=== PATIENT | male | born 1955 | race Caucasian/White ===

== ENCOUNTER 2016-10-27 09:28 | Emergency (ER) | payer MEDICAID ==
--- OUTSIDE RECORDS SUMMARY | 2016-10-27 10:55 | XMS REPORT | Continuity of Care Document ---
:1955 Author Organization [facility] ([facility]) Address [address] [place] [address] Phone [phone] Care Team Providers Name Role Phone Norris Young Primary Care Provider [phone] Source Comments This disclosure is being made pursuant to the Care Everywhere program, applicable federal and state laws, and may not contain all informaitonavailable regarding this patient.[facility] ([facility]) Active Allergies and Adverse Reactions Allergen Noted Date Severity Reactions Comments Penicillins Unknown Current Medications Prescription Sig. Disp. Refills Start Date End Date Status aspirin 81 mg tablet take 81 mg by 09/06/2008 Active mouth Every morning. Chew atenolol (TENORMIN) 50 mg take 50 mg by 08/29/2008 Active tablet mouth daily. glucose blood test strips 1 Each by In 09/06/2008 Active (ACCU-CHEK MICHA) strip Vitro route 2 times daily. Lancing Device with Lancets 1 Each 2 times 09/06/2008 Active (ACCU-CHEK MULTICLIX LANCET) daily. Kit hydrochlorothiazide take 25 mg by 08/29/2008 Active (HYDRODIURIL) 25 mg tablet mouth daily. lisinopril (PRINIVIL) 10 mg take 10 mg by 09/06/2008 Active tablet mouth Every morning. metFORMIN (GLUCOPHAGE) 850 mg take 850 mg by 09/06/2008 Active tablet mouth 2 times daily. simvastatin (ZOCOR) 40 mg take 40 mg by 09/07/2008 Active tablet mouth at bedtime. Active Problems Problem Noted Date Osteoarthrosis, unspecified whether generalized or localized, unspecified 12/2008 site Abdominal pain, unspecified site 08/29/2008 Special screening for malignant neoplasm of prostate 07/27/2007 Special screening for malignant neoplasms, colon 07/27/2007 Other and unspecified hyperlipidemia 07/27/2007 Cough 07/27/2007 Type II or unspecified type diabetes mellitus without mention of 09/23/2006 complication, not stated as uncontrolled Pure hypercholesterolemia 09/23/2006 Screening for lipoid disorders 08/07/2006 Unspecified essential hypertension 08/07/2006 Undiagnosed cardiac murmurs 08/07/2006 Screening for diabetes mellitus 01/06/2006 Essential hypertension, benign 01/06/2006 Social History Tobacco Use Types Packs/Day Years Used Date Never Assessed Last Filed Vital Signs Vital Sign Reading Time Taken Blood Pressure 155/90 09/06/2008 3:28 PM CDT Pulse 67 09/06/2008 3:28 PM CDT Temperature 37.2 C (98.96 F) 09/06/2008 3:28 PM CDT Respiratory Rate 18 09/06/2008 3:28 PM CDT Height 1.77 m (5' 9.68") 09/06/2008 3:28 PM CDT Weight 102.2 kg (225 lb 5 oz) 09/06/2008 3:28 PM CDT Body Mass Index 32.62 09/06/2008 3:28 PM CDT Oxygen Saturation - - Plan of Care Health Maintenance Due Date Last Done Comments HCV Screening 1955 Hepatitis B Vaccine (1 of 3 - 1955 Primary Series) Tdap Vaccine 1967 MMR Vaccine 1974 Td Vaccine 1974 Pneumococcal Vaccine (1 of 1 1975 - PPSV23) Colonoscopy 2006 Prostate Cancer Screening 07/27/2008 07/27/2007 DIABETIC: Hemoglobin A1C 03/08/2009 09/06/2008, Additional history exists 07/27/2007, 12/23/2006 DIABETIC: Cholesterol 09/06/2009 09/06/2008, Additional history exists 12/23/2006, 09/23/2006 Diabetic: Hdl 09/06/2009 09/06/2008, Additional history exists 12/23/2006, 09/23/2006 Diabetic: Ldl 09/06/2009 09/06/2008, Additional history exists 12/23/2006, 09/23/2006 DIABETIC: Microalbumin 09/06/2009 09/06/2008, Additional history exists 12/23/2006, 09/23/2006 DIABETIC: Triglycerides 09/06/2009 09/06/2008, Additional history exists 12/23/2006, 09/23/2006 DIABETIC: Foot Exam 11/12/2010 DIABETIC: Retinal Eye Exam 11/12/2010 Influenza Vaccine: Seasonal 12/31/2015 (#1) Zoster Vaccine 2016 Results from Last 3 Months Not on file
--- NOTE | 2016-10-27 11:04 | ERNOTE ---
Integumentary HPI - Narrative Date of Service: 10/27/16 - General Presenting Symptoms: other - redness and blackened between first and second toes. Time Seen by Provider: 10/27/16 10:45 Source: patient Exam Limitations: no limitations - Immun/Allergies/Home Medications Immunizations: IMMUNIZATION HX Immunizations Up to Date No History of Influenza Vaccine No Hx Pneumococcal Vaccination No Allergies/Adverse Reactions: Allergies Allergy/AdvReac Type Severity Reaction Status Date / Time Penicillins Allergy Verified 10/27/16 10:21 Home Medications: HOME MEDICATIONS metFORMIN HCL [Glucophage] 850 mg PO BID 10/27/16 [Last Taken Unknown] - History of Present Illness Narrative: Pt. comes in with c/o L foot swelling, redness pain and blackened area between first and second toe that pt. noted was a white blister yesterday and has become dramatically worse. Pt. denies any history of foot wounds but is diabetic but denies any prehosital treatment, numbness, or tingling. Review of Systems - Review of Systems Constitutional: Present: no symptoms reported. Absent: fever, chills EYE: Present: no symptoms reported ENT: Present: no symptoms reported Respiratory: Present: no symptoms reported. Absent: shortness of breath, cough , wheezing Cardiology: Present: no symptoms reported. Absent: chest pain, palpitations, edema Gastrointestinal/Abdominal: Present: no symptoms reported Genitourinary: Present: no symptoms reported Musculoskeletal: Present: joint pain - L foot. Absent: back pain Skin: Present: no symptoms reported Neurological: Present: no symptoms reported. Absent: headache, dizziness/light- headedness, numbness, tingling All Other Systems: All systems neg except as marked - Patient's Past Medical History Patient History - Medical: Diabetes Type 2 Patient History - Cardiac/Respiratory: Hypertension Patient History - Cancer: No Hx of Cancer Patient History - Surgical Procedures: Appendectomy Patient History - Other: None - Social History Living Situations: alone Abuse History: No History of abuse Psych History: No pertinent hx Smoking Status: Never smoker Alcohol Use: none Drug Use: none - Immunizations Immunizations Up to Date: No Hx Pneumococcal Vaccination: No History of Influenza Vaccine: No Physical Exam - Physical Exam General Appearance: Present: wd/wn, alert, no apparent distress Eye Exam: Normal inspection: bilateral, PERRL: bilateral, EOMI: bilateral Ears, Nose, Throat: Present: normal ENT inspection, normal pharynx Neck: Present: normal inspection, nontender. Absent: lymphadenopathy (R), lymphadenopathy (L) Respiratory: Present: no respiratory distress, normal breath sounds, no accessory muscle use, chest nontender, lungs clear Cardiovascular/Chest: Present: regular rate, rhythm, no murmur, normal peripheral pulses Gastrointestinal/Abdominal: Present: normal bowel sounds, nontender, nondistended, soft, no organomegaly Back Exam: Present: normal inspection Extremity Exam: Present: normal range of motion, joint swelling - L foot Neurological Exam: Present: alert, oriented, normal mood/affect, no motor/ sensory deficits Skin Exam: Present: other - redness L distal foot with necrosis between L first and second toes. ED Progress - Date and Time Seen: Date and Time: 10/27/16 13:34 Given the appearance of foot am concerned for necratizing faciitis discussed with Dr Eve aden and he agrees that we need to transfer pt. discussed with Dr Veliz at [facility] and we will start pt. on Clindamycin and transfer him to [facility] for further care. - Results and Orders Patient's Lab Results:: I have reviewed the patient's lab results. - Vital Signs Patient's Vital Signs:: I have reviewed the patient's vital signs. Vital Signs: Vital Signs 10/27/16 10:03 Temperature 36.9 C Pulse Rate 101 H Respiratory 16 Rate Blood Pressure 193/110 O2 Sat by Pulse 97 Oximetry - X-Ray X-Ray #1 X-Ray: foot Interpretation: Interp. by me, Reviewed by me X-ray Comments: no gas noted but multiple foreign body - Progress/Reassessment Chief Complaint: Cellulitis Departure Clinical Impression: Necrotizing cellulitis - Departure Disposition: [facility] Condition: Serious Referrals: Brooke Pickard MD [Primary Care Provider] -
[2016-10-27 11:09] LABS: Hemoglobin 13.9 gm/dL (13.5-18.0); Mean Cell Volume 81.7 fl (78-100); Mean Corpuscular Hgb Conc 33.1 g/dl (32-36); Mean Platelet Volume 9.6 fl (6.0-9.5); Neutrophil # 10.8 K/mm3 (1.3-6.0); Neutrophil % 84.6 % (42-75.0); Platelet Count 156 K/mm3 (150-450); Red Blood Count 5.14 M/mm3 (4.7-6.0); White Blood Count 12.8 K/mm3 (4.0-10.5)
[2016-10-27 11:24] LABS: Albumin * 3.7 gm/dl (3.4-5.0); Anion Gap 14.8 mmol/L (6.8-13.8); BUN/Creatinine Ratio 12.4 (9.0-21.6); Bilirubin, Total 1.5 mg/dL (0.0-1.1); Ca. Corrected For Albumin 9.2 mg/dL (8.4-10.2); Calcium * 9.3 mg/dL (7.9-10.9); Carbon Dioxide 26.6 mmol/L (24-32.6); Potassium 4.4 mmol/L (3.4-4.6); Total Protein 8.4 gm/dL (6.2-8.2)
[2016-10-27 11:40] LABS: CRP 21.6 mg/dL (0.0-0.9)
[2016-10-27] MEDS ORDERED: NALBUPHINE HCL 20 MG/ML AMPUL IM ONE (13:26)
[2016-10-27] MEDS ORDERED: NALBUPHINE HCL 20 MG/ML AMPUL ONE (13:31)
[2016-10-27] MEDS ORDERED: CLINDAMYCIN PHOSPHATE 150 MG/ML VIAL IV ONE (13:34)
[2016-10-27] MEDS ORDERED: CLINDAMYCIN PHOSPHATE 600 MG in DEXTROSE 5 % IN WATER 100 ML IV ONE ×2 (14:30)
[2016-10-27 15:00] VITALS: BP 201/123
== END 2016-10-27 14:56 | disposition short-term general hospital (02) ==
LOC: ER 09:28
DX: L03.115 Cellulitis of right lower limb (principal); B96.89 Other specified bacterial agents as the cause of diseases classified elsewhere; E11.9 Type 2 diabetes mellitus without complications

== ENCOUNTER 2016-12-16 11:39 | Emergency (ER) | payer MEDICAID, OTHER ==
[2016-12-16 11:54] VITALS: BP 188/96
[2016-12-16] MEDS ORDERED: LISINOPRIL 10 MG TABLET PO ONE (12:09)
[2016-12-16] MEDS ORDERED: LISINOPRIL 10 MG TABLET ONE (12:10)
--- NOTE | 2016-12-16 12:12 | ERNOTE ---
Medical Problem HPI - General Chief Complaint: Screening, Blood Pressure Time Seen by Provider: 12/16/16 12:01 Source: patient Exam Limitations: no limitations - Immun/Allergies/Home Medications Immunizations: IMMUNIZATION HX Immunizations Up to Date Yes History of Influenza Vaccine No Hx Pneumococcal Vaccination No Allergies/Adverse Reactions: Allergies Penicillins Allergy (Verified 10/27/16 10:21) Home Medications: HOME MEDICATIONS Amox Tr/Potassium Clavulanate [Augmentin 875-125 Tablet] 875 mg PO Q12H [Last Taken Unknown] Aspirin 81 mg PO DAILY 12/16/16 [Last Taken Unknown] Doxycycline Hyclate [Vibratab] 100 mg PO DAILY 12/16/16 [Last Taken Unknown] Lisinopril [Zestril] 10 mg PO DAILY 12/16/16 [Last Taken Unknown] Lisinopril [Zestril] 20 mg PO DAILY #30 tablet 12/16/16 [Last Taken Unknown] Metoprolol Succinate [Toprol Xl] 100 mg PO DAILY 12/16/16 [Last Taken Unknown] glipiZIDE [Glipizide] 10 mg PO DAILY 12/16/16 [Last Taken Unknown] - History of Present History Narrative: Patient was at his eye doctor today and he was noted to have blood pressure in approximately 180/100 range. He has no complaint of any kind however he would benefit from better blood pressure control. Timing: unsure Severity: moderate Review of Systems - Review of Systems Constitutional: Present: no symptoms reported EYE: Present: no symptoms reported ENT: Present: no symptoms reported Respiratory: Present: no symptoms reported Cardiology: Present: no symptoms reported Gastrointestinal/Abdominal: Present: no symptoms reported Genitourinary: Present: no symptoms reported Musculoskeletal: Present: no symptoms reported Skin: Present: no symptoms reported Neurological: Present: no symptoms reported Endocrine: Present: no symptoms reported Hematologic/Lymphatic: Present: no symptoms reported Psych: Present: no symptoms reported - Patient's Past Medical History Patient History - Medical: Diabetes Type 2 Patient History - Cardiac/Respiratory: Hypertension Patient History - Cancer: No Hx of Cancer Patient History - Surgical Procedures: Appendectomy Patient History - Other: None - Social History Living Situations: home Abuse History: No History of abuse Psych History: No pertinent hx Smoking Status: Never smoker Have you smoked in the past 12 months: No Do you dip or chew tobacco: No Alcohol Use: none Drug Use: none - Immunizations Immunizations Up to Date: Yes Hx Pneumococcal Vaccination: No History of Influenza Vaccine: No Physical Exam - Physical Exam General Appearance: Present: wd/wn, alert, no apparent distress Eye Exam: Normal inspection: bilateral, PERRL: bilateral Ears, Nose, Throat: Present: normal ENT inspection, H, normal pharynx Neck: Present: normal inspection, nontender Respiratory: Present: no respiratory distress, normal breath sounds, no accessory muscle use, chest nontender, lungs clear Cardiovascular/Chest: Present: regular rate, rhythm, no murmur, normal peripheral pulses Gastrointestinal/Abdominal: Present: normal bowel sounds, nontender, nondistended, soft, no organomegaly Rectal Exam: Present: deferred Back Exam: Present: normal inspection, normal range of motion Extremity Exam: Present: normal inspection, non-tender, no edema, normal range of motion Neurological Exam: Present: alert, oriented, normal mood/affect Skin Exam: Present: normal color, warm/dry Lymphatic Exam: Present: no adenopathy ED Progress - Vital Signs Patient's Vital Signs:: I have reviewed the patient's vital signs. Vital Signs: Vital Signs 12/16/16 12/16/16 12/16/16 11:40 11:48 11:53 Temperature 37.2 C Pulse Rate 71 Respiratory 16 Rate Blood Pressure 188/96 194/94 188/96 O2 Sat by Pulse 98 Oximetry - Progress/Reassessment Chief Complaint: Screening, Blood Pressure Progress:: Unchanged Plan - Plan Plan: Patient will be given another 10 mg of his lisinopril now and we will increase his lisinopril to 20 mg a day. He agrees to call his family physician and to be seen within a week I suggested that he have daily blood pressures taken to make sure that were achieving a blood pressure control that we're looking for. Departure - Departure Clinical Impression: Hypertension Qualifiers: Hypertension type: essential hypertension Qualified Code(s): I10 - Essential ( primary) hypertension Disposition: Home self-care Condition: Good Instructions: Managing Your High Blood Pressure, Hypertension, [id number] Referrals: Brooke Pickard MD [Primary Care Provider] - Prescriptions: Lisinopril [Zestril] 20 mg PO DAILY #30 tablet
== END 2016-12-16 12:15 | disposition home or self-care (01) ==
LOC: ER 11:39
DX: I10 Essential (primary) hypertension (principal); Z79.899 Other long term (current) drug therapy